=== PATIENT | male | born 1995 | race Caucasian/White ===

== ENCOUNTER 2020-06-26 04:29 | Emergency (ER) | payer OTHER ==
[~2020-06-26] VITALS: Ht 180.3 cm; Wt 72.6 kg
[2020-06-26 04:29] VITALS: BP_SYST 136
--- NOTE | 2020-06-26 04:29 | NUR ---
Received patient to ER incustody w/ [facility] Deputies for MSE/Ok to book 2nd to patient h/o Diabetes type 1. Patient admits to smoking "Meth" yesterday for which hr noted to be elevated at rate of 160. Patient denies any cp or sob. Introduced self to patient, placed on equipment monitor phototypesetting (sinus tachycardia), Positioned for comfort and safety w/ bed to low position sr up. Patient resting quietly. No acute distress noted. Vital signs within normal range.
--- NOTE | 2020-06-26 04:30 | NUR ---
Patient to ER bed to gown for evaluation. Side rails up.
--- NOTE | 2020-06-26 05:08 | NUR ---
Acck noted at 350, ER MD informed of results. Await further orders.
[2020-06-26] MEDS ORDERED: LORazepam 2 MG/ML VIAL IVP ONE (05:30)
[2020-06-26] MEDS ORDERED: NACL 0.9% 1,000 ML IV ONE (05:30)
--- NOTE | 2020-06-26 05:55 | NUR ---
Patient medicated as ordered, Will observe for any adverse reaction. Bed to low position sr up. continue to monitor. hr had decreased to 129 prior to start of infusion of ns.
--- NOTE | 2020-06-26 06:37 | NUR ---
Patient asleep resting comfortably and quietly. No acute distress noted. Vital signs within normal range. hr at 108.
--- NOTE | 2020-06-26 07:00 | NUR ---
Report received from MARY ANN Ocampo for continuation of care. is at bedside with patient. Patient is sleeping and does not appear in any distress at this time.
[2020-06-26 07:05] LABS: BASOPHILS % (AUTO) 0.2 % (0.0-2.0); EOSINOPHILS % (AUTO) 0.2 % (0.0-4.0); HEMOGLOBIN 12.4 g/dL (14.0-18.0); LYMPHOCYTES # (AUTO) 1.1 K/uL (1.0-5.5); LYMPHOCYTES % (AUTO) 14.5 % (20.5-51.5); MEAN CORPUSCULAR HEMOGLOBIN 31 pg (27-31); MEAN CORPUSCULAR HGB CONC 34 % (32-36); MEAN CORPUSCULAR VOLUME 90 fL (79.0-98.0); MONOCYTES # (AUTO) 0.6 K/uL (0.0-1.0); MONOCYTES % (AUTO) 8.6 % (1.7-9.3); NEUTROPHILS # (AUTO) 5.6 K/uL (1.8-7.7); NEUTROPHILS % (AUTO) 76.5 % (40.0-70.0); PLATELET COUNT (AUTO) 350 K/uL (130-430); RED BLOOD CELL COUNT(AUTO) 4.01 MIL/uL (4.2-6.2); RED CELL DISTRIBUTION WIDTH 13.1 % (9.0-15.0); WHITE BLOOD COUNT (AUTO) 7.3 K/uL (4.8-10.8)
[2020-06-26 07:37] LABS: ANION GAP 10 (5-15); CALCIUM 7.5 mg/dL (8.4-11.0); CHLORIDE 102 mmol/L (98-107); CREATININE 0.78 mg/dL (0.55-1.30); GFR AFRICAN AMERICAN 156 mL/min (>90); GLUCOSE 270 mg/dL (70-99); POTASSIUM 3.2 mmol/L (3.5-5.1); SODIUM SERUM 136 mmol/L (136-145); UREA NITROGEN, BLOOD 13 mg/dL (8-21)
[2020-06-26 07:52] LABS: ALANINE AMINOTRANSFERASE 27 U/L (12-78); ALBUMIN 2.7 g/dL (3.4-4.8); ALCOHOL, BLOOD < 3 mg/dL (<10); ASPARTATE AMINOTRANSFERASE 35 U/L (10-37); TOTAL BILIRUBIN 0.4 mg/dL (0.0-1.0)
[2020-06-26 08:06] LABS: ACETONE, SERUM SMALL (NEGATIVE)
[2020-06-26 08:25] VITALS: BP_SYST 135
== END 2020-06-26 08:25 ==
LOC: SED 04:29
DX: E11.65 Type 2 diabetes mellitus with hyperglycemia (principal); F15.10 Other stimulant abuse, uncomplicated; R03.0 Elevated blood-pressure reading, without diagnosis of hypertension; Z20.828 Contact with and (suspected) exposure to other viral communicable diseases
CPT/HCPCS: 36415; 80053; 82009; 82962; 84484; 85025; 87426; 93005; 96361; 96374; 99284; G0482; J2060; J7030

== ENCOUNTER 2020-07-16 22:39 | Emergency (ER) | payer OTHER ==
[~2020-07-16] VITALS: Ht 180.3 cm; Wt 72.6 kg
[2020-07-16 22:39] VITALS: BP_SYST 128
--- NOTE | 2020-07-16 22:40 | NUR ---
Patient BIB by ALS/EMS from [facility]. C/O Hyperglycemia x today. Per reported , patient had hyperglycemia, BS 519, Staff called 911. Started IV given NSS bolus and insulin 22 unit at the scene.
--- NOTE | 2020-07-16 23:10 | NUR ---
Dr. Howell at bedside for physical exam in EMS.
[2020-07-16 23:35] VITALS: BP_SYST 126
--- NOTE | 2020-07-16 23:35 | NUR ---
Patient given written and verbal discharge instructions and verbalizes understanding. ER MD discussed with patient the results and treatment provided. Patient in stable condition. ID arm band removed. IV catheter removed intact and dressing applied, no active bleeding. No Rx given. Patient educated on pain management and to follow up with PMD. Pain Scale 0/10. Opportunity for questions provided and answered.
== END 2020-07-16 23:35 | disposition home or self-care (01) ==
LOC: SED 22:39
DX: E11.649 Type 2 diabetes mellitus with hypoglycemia without coma (principal)
CPT/HCPCS: 82962; 99283